=== PATIENT | male | born 1935 | race African-American/Black ===

== ENCOUNTER 2017-04-06 09:33 | Day surgery (SDC) | payer MEDICARE, BC ==
[~2017-04-06] VITALS: Ht 182.9 cm; Wt 92.7 kg
[~2017-04-06 09:33] MED LIST: ACETAMINOPHEN/CODEINE 300-30 MG TABLET PO PRN; ALFU10TA30 PO; ALLO300 PO; AMLO-511 PO; ASPI81 PO; ATEN25TA PO; ERGO500014 PO; FOLI0.4T4 PO; FURO40TA5 PO; OMEG-135 PO; RINGERS SOLUTION,LACTATED 500 ML IV ONE; SOLI5 PO; TETRACAINE HCL/PF 0.5% 4 ML OPHTHALMIC SOLUTION OS ONE
[2017-04-06] MEDS ORDERED: LIDOCAINE HCL/PF 1% 2 ML VIAL IARTIC ONE (09:34)
[2017-04-06] MEDS ORDERED: MIDAZOLAM HCL 2 MG/2 ML VIAL IVP ONE (09:34)
[2017-04-06] MEDS ORDERED: HYALURONATE SOD/CHONDROITIN SOD 0.5 ML VIAL IO ONE (09:34)
[2017-04-06] MEDS ORDERED: POVIDONE-IODINE 10% 15 ML SOLUTION UD TP ONE (09:34)
[2017-04-06] MEDS ORDERED: HYALURONATE SODIUM 12 MG/ML 0.8 ML SYRINGE IO ONE (09:34)
[2017-04-06] MEDS ORDERED: BRIMONIDINE TARTRATE 0.15% 5 ML OPHTHALMIC SOLUTION OD ONE (09:34)
[2017-04-06] MEDS ORDERED: EPINEPHrine 1:1,000 [1 MG/ML] AMP IM ONE (09:34)
[2017-04-06] MEDS ORDERED: TETRACAINE HCL VISCOUS 0.5% 5 ML OPHTHALMIC SOLUTION OD ONE (09:34)
[2017-04-06] MEDS ORDERED: RINGERS SOLUTION,LACTATED 500 ML IV ONE (09:41)
[2017-04-06] MEDS ORDERED: MOXIFLOXACIN HCL 0.5% 3 ML OPHTHALMIC SOLUTION ONE (09:42)
[2017-04-06] MEDS ORDERED: CYCLOPENTOLATE HCL 2% 2 ML OPHTHALMIC SOLUTION ONE (09:42)
[2017-04-06] MEDS ORDERED: TETRACAINE HCL/PF 0.5% 4 ML OPHTHALMIC SOLUTION ONE (09:42)
[2017-04-06] MEDS ORDERED: PHENYLEPHRINE HCL 2.5% 2 ML OPHTHALMIC SOLUTION ONE (09:42)
[2017-04-06] MEDS ORDERED: DICLOFENAC SODIUM 0.1% 2.5 ML OPHTHALMIC SOLUTION ONE (09:42)
[2017-04-06] MEDS: DICLOFENAC SODIUM 0.1% 2.5 ML OPHTHALMIC SOLUTION OS SCH ×3 (10:26→10:48)
[2017-04-06] MEDS: MOXIFLOXACIN HCL 0.5% 3 ML OPHTHALMIC SOLUTION OS SCH ×3 (10:26→10:48)
[2017-04-06] MEDS: CYCLOPENTOLATE HCL 2% 2 ML OPHTHALMIC SOLUTION OS SCH ×3 (10:26→10:37)
[2017-04-06] MEDS: PHENYLEPHRINE HCL 2.5% 2 ML OPHTHALMIC SOLUTION OS SCH ×3 (10:26→10:37)
[2017-04-06] MEDS ORDERED: AcetaZOLAMIDE 250 MG TABLET PO ONE (11:15)
[2017-04-06] MEDS ORDERED: AcetaZOLAMIDE 250 MG TABLET ONE (11:40)
== END 2017-04-06 12:10 | disposition home or self-care (01) ==
LOC: SURGERY 09:33
PROVIDERS: ATTEND Ophthalmology
DX: H25.12 Age-related nuclear cataract, left eye (principal); H40.9 Unspecified glaucoma; I10 Essential (primary) hypertension; M10.9 Gout, unspecified; M48.00 Spinal stenosis, site unspecified; Z72.89 Other problems related to lifestyle; Z79.82 Long term (current) use of aspirin; Z91.030 Bee allergy status; Z91.041 Radiographic dye allergy status; Z88.8 Allergy status to other drugs, medicaments and biological substances; Z79.899 Other long term (current) drug therapy; Z98.890 Other specified postprocedural states; Z95.1 Presence of aortocoronary bypass graft; Z86.11 Personal history of tuberculosis
CPT/HCPCS: 66984; 93005; C1780; J0171; J2250; J3490 ×2; J7120